=== PATIENT | female | born 1940 | race Two or more races ===

== ENCOUNTER 2017-04-24 12:37 | Inpatient (IN) | payer MEDICARE, MEDICAID ==
[~2017-04-24] VITALS: Ht 167.6 cm; Wt 74.2 kg
[~2017-04-24 12:37] MED LIST: ALPR0.5T7 PO; AML5T PO; CYCL5TAB PO; DOCU100T15 PO; GABA300C10 PO; MET50T PO; NITR-39 PO; NOR10T PO; PANT1INJ3 PO; TEMA15CA PO; VEN75XRT PO
[2017-04-24] MEDS ORDERED: ACETAMINOPHEN 325 MG TAB PO ONE (13:30)
[2017-04-24] MEDS ORDERED: methylPREDNISolone SOD SUCC 125 MG/2 ML VL IV ONE (15:00)
[2017-04-24] MEDS ORDERED: IPRATROPIUM BROM 0.5 MG/2.5ML INH SOL HHN ONE (15:00)
[2017-04-24] MEDS ORDERED: ALBUTEROL SULF 2.5 MG/0.5ML(0.5%) NEB SOLN HHN ONE (15:00)
[2017-04-24] MEDS ORDERED: cefTRIAXone 1GM/10ml IVPUSH 10 ML IV ONE (15:45)
[2017-04-24 17:12] LABS: Hematocrit 32.8 % (36.0-46.0); Hemoglobin 10.1 g/dL (12.2-16.2); Mean Corpuscular Hemoglobin 26.2 pg (28.0-32.0); Mean Corpuscular Hgb Conc. 30.8 g/dL (32.0-36.0); Mean Corpuscular Volume 85.1 fL (80.0-100.0); Platelet Count (auto) 325 10^3/uL (140-450); Red Blood Cells 3.86 10^6/uL (4.0-5.20); White Blood Cell 26.7 10^3/uL (4.4-10.8)
[2017-04-24 17:13] LABS: Basophils % (manual) 0 (0.0-2.0); Blast Cells 0; Eosinophils % (manual) 0 (0-7); Metamyelocytes % 0; Myelocytes % 0; Promyelocytes % 0; Reactive Lymphocytes 0
[2017-04-24 17:31] LABS: Albumin 2.9 g/dL (3.4-5.0); BUN/Creatinine Ratio 20.3; Calcium 7.5 mg/dL (8.5-10.1); Magnesium 2.1 mg/dL (1.6-2.6); Potassium 3.6 mmol/L (3.5-5.1)
[2017-04-24 17:35] LABS: Bilirubin, Total 0.4 mg/dL (0.2-1.0)
[2017-04-24 17:53] LABS: Band Neutrophils % (manual) 15; Lymphocytes % (manual) 7 (10.0-50.0); Monocytes % (manual) 3 (0-12)
[2017-04-24] MEDS: SODIUM CHLORIDE 0.9% 1,000 ML IV SCH (18:46)
[2017-04-24] MEDS ORDERED: ONDANSETRON HCL 4 MG/2 ML VIAL IV PRN (19:00)
[2017-04-24] MEDS ORDERED: ACETAMINOPHEN 325 MG TAB PO PRN (19:00)
[2017-04-24] MEDS ORDERED: MORPHINE SULF INJ 2 MG/ML SYRINGE 1ML IV PRN ×2 (19:00)
[2017-04-24] MEDS ORDERED: METOCLOPRAMIDE HCL 5MG/ml INJ 2ml VIAL IV PRN (19:00)
[2017-04-24] MEDS ORDERED: NITROGLYCERIN 0.4 MG SL TAB SL PRN (19:00)
[2017-04-24] MEDS ORDERED: DOCUSATE SOD 100 MG CAP PO PRN (19:00)
[2017-04-24] MEDS: cefTRIAXone 1GM/10ml IVPUSH 10 ML IV SCH (19:24)
[2017-04-24 21:00] LABS: Urine Blood Negative /uL (Negative); Urine Specific Gravity 1.018 (1.001-1.035)
[2017-04-24 21:12] LABS: Urine Bacteria 3+ /hpf (None Seen); Urine WBC 2 /hpf (0 - 5)
[2017-04-24 21:30] VITALS: BP 120/58
[2017-04-24] MEDS: CYCLOBENZAPRINE HCL 10 MG TAB PO SCH (22:00)
[2017-04-24] MEDS ORDERED: DOCUSATE SOD 100 MG CAP PO SCH (22:00)
[2017-04-24] MEDS: GABAPENTIN 300 MG CAP PO SCH (22:00)
[2017-04-24] MEDS: TEMAZEPAM 15 MG CAP PO SCH (22:00)
[2017-04-25] MEDS ORDERED: ALBUTEROL SULF 2.5 MG/0.5ML(0.5%) NEB SOLN NEB SCH (02:00)
[2017-04-25 02:30] VITALS: BP 114/60
[2017-04-25] MEDS: HYDROcodone-ACET 5/325MG TAB PO PRN ×3 (05:02→19:48)
[2017-04-25 05:31] VITALS: BP 113/64
[2017-04-25 05:40] LABS: Basophils # (auto) 0 uL; Basophils % (auto) 0.2 % (0.0-2.0); Eosinophils # (auto) 0.1 uL; Eosinophils % (auto) 1.1 % (0.0-7.0); Hematocrit 42.5 % (36.0-46.0); Hemoglobin 14.7 g/dL (12.2-16.2); Lymphocytes # (auto) 3.3 uL; Lymphocytes % (auto) 34.3 % (10.0-50.0); Mean Corpuscular Hemoglobin 32.2 pg (28.0-32.0); Mean Corpuscular Hgb Conc. 34.6 g/dL (32.0-36.0); Mean Corpuscular Volume 93.1 fL (80.0-100.0); Monocytes # (auto) 0.9 uL; Monocytes % (auto) 9.6 % (0.0-12.0); Neutrophils # (auto) 5.3 uL; Neutrophils % (auto) 54.8 % (37.0-80.0); Nucleated Red Blood Cells % 0.3 %; Platelet Count (auto) 139 10^3/uL (140-450); Red Blood Cells 4.57 10^6/uL (4.0-5.20); Red Cell Distribution Width 13.1 % (11.8-14.3); White Blood Cell 9.7 10^3/uL (4.4-10.8)
[2017-04-25] MEDS: methylPREDNISolone SOD SUCC 40 MG/ML VL IV SCH ×5 (05:55→23:55)
[2017-04-25] MEDS: CYCLOBENZAPRINE HCL 10 MG TAB PO SCH ×3 (05:56→22:21)
[2017-04-25 06:02] LABS: Albumin 3.1 g/dL (3.4-5.0); Bilirubin, Total 0.9 mg/dL (0.2-1.0); Calcium 7.8 mg/dL (8.5-10.1); Potassium 3.6 mmol/L (3.5-5.1); Total Protein 6.6 g/dL (6.4-8.2)
[2017-04-25 09:12] VITALS: BP 92/46
[2017-04-25] MEDS: cefTRIAXone 1GM/10ml IVPUSH 10 ML IV SCH (09:59)
[2017-04-25] MEDS: ALPRAZolam 0.5 MG TAB PO SCH (09:59)
[2017-04-25] MEDS: GABAPENTIN 300 MG CAP PO SCH ×2 (09:59→22:21)
[2017-04-25] MEDS: METOPROLOL TARTRATE 50 MG TAB PO SCH (10:00)
[2017-04-25] MEDS ORDERED: AZITHROMYCIN 500MG/ 250ML 250 ML IV SCH (10:00)
[2017-04-25] MEDS: VENLAFAXINE HCL 37.5mg XR cap PO SCH (10:00)
[2017-04-25] MEDS: SODIUM CHLORIDE 0.9% 1,000 ML IV SCH (11:26)
[2017-04-25 11:59] VITALS: BP 126/59
[2017-04-25 16:59] VITALS: BP 127/63
[2017-04-25] MEDS: TEMAZEPAM 15 MG CAP PO SCH (22:22)
[2017-04-25 23:20] VITALS: BP 154/63
[2017-04-26] MEDS: SODIUM CHLORIDE 0.9% 1,000 ML IV SCH (04:06)
[2017-04-26 05:26] VITALS: BP 149/77
[2017-04-26] MEDS: CYCLOBENZAPRINE HCL 10 MG TAB PO SCH ×2 (05:51→14:23)
[2017-04-26] MEDS: methylPREDNISolone SOD SUCC 40 MG/ML VL IV SCH ×2 (05:51→11:49)
[2017-04-26] MEDS: HYDROcodone-ACET 5/325MG TAB PO PRN ×2 (09:02→13:05)
[2017-04-26 09:05] VITALS: BP 153/64
[2017-04-26] MEDS: GABAPENTIN 300 MG CAP PO SCH (09:27)
[2017-04-26] MEDS: METOPROLOL TARTRATE 50 MG TAB PO SCH (09:27)
[2017-04-26] MEDS: VENLAFAXINE HCL 37.5mg XR cap PO SCH (09:27)
[2017-04-26] MEDS: ALPRAZolam 0.5 MG TAB PO SCH (09:28)
[2017-04-26] MEDS ORDERED: PRE5T PO (09:51)
[2017-04-26] MEDS ORDERED: AZIT500T4 PO (09:51)
[2017-04-26] MEDS ORDERED: PANTOPRAZOLE 40 MG TAB PO SCH (10:00)
[2017-04-26] MEDS: cefTRIAXone 1GM/10ml IVPUSH 10 ML IV SCH (10:00)
[2017-04-26 13:00] VITALS: BP 128/75
[2017-04-26 17:00] VITALS: BP 128/69
== END 2017-04-26 18:30 | DRG 871 ==
LOC: EDBD 12:37 → ER 12:37 → TELE 12:38 → TELE-CENTR 04-25 02:45
PROVIDERS: ADMIT Internal Medicine; ATTEND Internal Medicine
DX: A41.9 Sepsis, unspecified organism (principal); J96.91 Respiratory failure, unspecified with hypoxia; I13.0 Hypertensive heart and chronic kidney disease with heart failure and stage 1 through stage 4 chronic kidney disease, or unspecified chronic kidney disease; I50.42 Chronic combined systolic (congestive) and diastolic (congestive) heart failure; N39.0 Urinary tract infection, site not specified; J44.0 Chronic obstructive pulmonary disease with (acute) lower respiratory infection; N18.3 Chronic kidney disease, stage 3 (moderate); D50.9 Iron deficiency anemia, unspecified; E78.5 Hyperlipidemia, unspecified; F32.9 Major depressive disorder, single episode, unspecified; F41.9 Anxiety disorder, unspecified; G89.29 Other chronic pain; M54.5 Low back pain; K59.00 Constipation, unspecified; I25.10 Atherosclerotic heart disease of native coronary artery without angina pectoris; K21.9 Gastro-esophageal reflux disease without esophagitis; Z82.3 Family history of stroke; Z84.89 Family history of other specified conditions; Z90.710 Acquired absence of both cervix and uterus; Z90.49 Acquired absence of other specified parts of digestive tract; Z88.1 Allergy status to other antibiotic agents; Z88.6 Allergy status to analgesic agent; Z88.2 Allergy status to sulfonamides; Z88.8 Allergy status to other drugs, medicaments and biological substances; Z79.899 Other long term (current) drug therapy
CPT/HCPCS: 36415; 36600; 71046; 80053; 81001; 82805; 83605; 83735; 83880; 84484; 85007; 85025; 85027; 87040; 87081; 87400; 93005; 94640; 94761; 96374; 96375